=== PATIENT | male | born 1960 | race Caucasian/White ===

== ENCOUNTER 2016-09-14 13:53 | Emergency (ER) | payer OTHER ==
[~2016-09-14] VITALS: Ht 175.3 cm; Wt 86.0 kg
[2016-09-14 13:56] VITALS: BP 105/60; PULSE 45; RESP 22; TEMP 98.5; O2SAT 97
[2016-09-14 14:26] VITALS: BP 119/73; PULSE 56; RESP 16; O2SAT 98
[2016-09-14] MEDS ORDERED: SODIUM CHLOR 0.9% 1000 ML INJ 1,000 ML IV SCH (14:26)
[2016-09-14] MEDS ORDERED: ONDANSETRON HCL 4 MG/2 ML VIAL IVP ONE (14:30)
[2016-09-14] MEDS ORDERED: MORPHINE SULFATE 4 MG/ML INJ IV PUSH ONE (14:30)
[2016-09-14] MEDS ORDERED: SODIUM CHLORIDE 0.9% FLUSH 10 ML FLUSH IV FLUSH PRN (14:30)
--- NOTE | 2016-09-14 14:35 | PD ---
HPI Chief Complaint: Abdominal Pain Time Seen by Provider: 14:31 Travel History International Travel<30 days: No Contact w/Intl Traveler<30days: No Traveled to known affect area: No History of Present Illness HPI Patient comes in complaining of lower abdominal pain that began shortly prior to arrival. Patient states pain began shortly after drinking some milk. Patient has anything today. Patient states he has associated nausea and vomiting was nonbloody and nonbilious. Patient was present stabbing cramping pain more in the left lower quadrant that radiates across the right lower quadrant. Patient denies any history of abdominal surgery because reported umbilical hernia. Patient reports he did some heavy lifting yesterday but did not have the pain at that time. Denies any back pain, chest pain, shortness of breath, fevers, diarrhea, or headaches. FORMERLY [facility] Past Medical History Medical History: Denies Significant Hx Tetanus Vaccination: > 5 Years Influenza Vaccination: No Social History Alcohol Use: No Tobacco Use: Yes (1 cig a day, yesterday was last time) Substance Use: No Allergies-Medications (Allergen,Severity, Reaction): Coded Allergies: No Known Allergies (Unverified , 09/14/16) Review of Systems Except as stated in HPI: all other systems reviewed are Neg Physical Exam Narrative GENERAL: Well-developed, overly nourished, in no acute distress, and non-ill appearing. SKIN: Focused skin assessment warm and dry. HEAD: Atraumatic. Normocephalic. EYES: Pupils equal and round. EOMI. No scleral icterus. No injection or drainage. ENT: No nasal bleeding or discharge. Mucous membranes pink and moist. NECK: Trachea midline. No JVD. Supple. No nuclear rigidity. CARDIOVASCULAR: Regular rate and rhythm. No murmur appreciated. RESPIRATORY: No accessory muscle use. No respiratory distress. Clear to auscultation. Breath sounds equal bilaterally. GASTROINTESTINAL: Abdomen soft, nondistended. Hepatic and splenic margins not palpable. Hypoactive bowel sounds 4. No pulsatile mass. Patient reports that throughout the abdomen, but greater across the lower abdomen. Umbilical hernia is also noted that patient reports tenderness to palpation. MUSCULOSKELETAL: No obvious deformities. No clubbing. No cyanosis. No edema. Full range of motion. NEUROLOGICAL: Awake and alert. No obvious cranial nerve deficits. Motor grossly within normal limits. Normal speech. PSYCHIATRIC: Appropriate mood and affect; insight and judgment normal. Data Data Last Documented VS Vital Signs Date Time Temp Pulse Resp B/P Pulse Ox O2 Delivery O2 Flow Rate FiO2 09/14/16 17:02 62 16 143/89 98 Room Air 09/14/16 13:56 98.5 Orders Complete Blood Count With Diff (09/14/16 14:26) Comprehensive Metabolic Panel (09/14/16 14:26) Lipase (09/14/16 14:26) Lactic Acid (09/14/16 14:26) Prothrombin Time / Inr (Pt) (09/14/16 14:26) Act Partial Throm Time (Ptt) (09/14/16 14:26) Ct Abd/Pel W/O Iv Contrast (09/14/16 14:26) Iv Access Insert/Monitor (09/14/16 14:) Ecg Monitoring (09/14/16 14:26) Oximetry (09/14/16 14:26) Morphine Inj (Morphine Inj) (09/14/16 14:30) Ondansetron Inj (Zofran Inj) (09/14/16 14:30) Sodium Chlor 0.9% 1000 Ml Inj (Ns 1000 M (09/14/16 14:26) Sodium Chloride 0.9% Flush (Ns Flush) (09/14/16 14:30) Electrocardiogram (09/14/16 14:26) Urinalysis - C+S If Indicated (09/14/16 15:09) Labs Laboratory Tests Test 09/14/16 09/14/16 09/14/16 14:20 14:40 16:30 White Blood Count 12.2 TH/MM3 Red Blood Count 4.97 MIL/MM3 Hemoglobin 13.8 GM/DL Hematocrit 41.5 % Mean Corpuscular Volume 83.4 FL Mean Corpuscular Hemoglobin 27.7 PG Mean Corpuscular Hemoglobin 33.2 % Concent Red Cell Distribution Width 13.5 % Platelet Count 187 TH/MM3 Mean Platelet Volume 9.1 FL Neutrophils (%) (Auto) 78.2 % Lymphocytes (%) (Auto) 14.9 % Monocytes (%) (Auto) 4.9 % Eosinophils (%) (Auto) 1.5 % Basophils (%) (Auto) 0.5 % Neutrophils # (Auto) 9.5 TH/MM3 Lymphocytes # (Auto) 1.8 TH/MM3 Monocytes # (Auto) 0.6 TH/MM3 Eosinophils # (Auto) 0.2 TH/MM3 Basophils # (Auto) 0.1 TH/MM3 CBC Comment DIFF FINAL Differential Comment Prothrombin Time 11.4 SEC Prothromb Time International 1.0 RATIO Ratio Activated Partial 22.7 SEC Thromboplast Time Sodium Level 143 MEQ/L Potassium Level 3.8 MEQ/L Chloride Level 104 MEQ/L Carbon Dioxide Level 34.1 MEQ/L Anion Gap 5 MEQ/L Blood Urea Nitrogen 22 MG/DL Creatinine 1.27 MG/DL Estimat Glomerular Filtration 59 ML/MIN Rate Random Glucose 144 MG/DL Calcium Level 9.2 MG/DL Total Bilirubin 0.6 MG/DL Aspartate Amino Transf 21 U/L (AST/SGOT) Alanine Aminotransferase 38 U/L (ALT/SGPT) Alkaline Phosphatase 60 U/L Total Protein 7.9 GM/DL Albumin 4.0 GM/DL Lipase 200 U/L Lactic Acid Level 1.8 mmol/L Urine Color YELLOW Urine Turbidity CLEAR Urine pH 7.0 Urine Specific [place] 1.019 Urine Protein NEG mg/dL Urine Glucose (UA) NEG mg/dL Urine Ketones NEG mg/dL Urine Occult Blood NEG Urine Nitrite NEG Urine Bilirubin NEG Urine Urobilinogen LESS THAN 2.0 MG/DL Urine Leukocyte Esterase NEG Urine RBC LESS THAN 1 /hpf Urine WBC 1 /hpf Urine Squamous Epithelial <1 /hpf Cells Urine Bacteria RARE /hpf Urine Mucus FEW /lpf Microscopic Urinalysis Comment CULT NOT INDICATED MDM Medical Decision Making Medical Screen Exam Complete: Yes Emergency Medical Condition: Yes Interpretation(s) CT of the abdomen read by radiologist shows: 1. Umbilical hernia containing a small segment of small bowel. Mild dilatation of small bowel loops proximal to the hernia. 2. Diverticulosis without diverticulitis. Differential Diagnosis Ileus, obstruction, appendicitis, diverticulitis, incarcerated hernia, ischemic bowel, renal calculi, UTI, other Narrative Course Patient seen and examined. Initial laboratory and radiological studies were obtained and reviewed. Discussed patient with Dr. Diaz, who saw and evaluated the patient and easily reduced patient's umbilical hernia. Patient in no obvious distress upon re-evaluation. All pertinent laboratory/ Radiology result(s) discussed with patient/family. Dr. Diaz discussed warning signs to return to the emergency department as well as gave patient's instructions on how to reduce his umbilical hernia home with symptoms recur strict instructions to return to the emergency department if unable to reduce it or alleviate pain. Any questions/concerns in reference to patient diagnosis/ condition discussed and clarified prior to patient's discharge. Reinforced sheer importance of close follow up with patient's primary physician or primary care clinic and/or general surgeon. Instructed patient to return to ED immediately, if symptoms return/worsen. Pt showed understanding of above instructions. Patient was discharged by Dr. Diaz, please see his documentation for final diagnosis. Pt ambulated without difficulty out of ED at discharge. Physician Communication Physician Communication [phone] discussed patient with Gen Nancy. surgeon on-call, who is in agreement with plan of feeding patient and monitoring in the ER for little while and if patient remained stable follow-up as an outpatient. And to give the patient instructions on how to reduce his hernia as an outpatient and warning signs to return to the emergency department. Condition: David Casey September 14, 2016 14:35
[2016-09-14 14:46] LABS: AUTOMATED NEUTROPHIL # 9.5 TH/MM3 (1.8-7.7); BASOPHIL # 0.1 TH/MM3 (0-0.2); BASOPHIL % 0.5 % (0.0-2.0); EOSINOPHIL # 0.2 TH/MM3 (0-0.4); EOSINOPHIL % 1.5 % (0.0-4.0); HEMATOCRIT 41.5 % (39.0-51.0); HEMO FLAGS DIFF FINAL; LYMPH % 14.9 % (9.0-44.0); LYMPHOCYTE # 1.8 TH/MM3 (1.0-4.8); MEAN CELL VOLUME 83.4 FL (80.0-100.0); MEAN CORPUSCULAR HEMOGLOBIN 27.7 PG (27.0-34.0); MEAN CORPUSCULAR HGB CONC 33.2 % (32.0-36.0); MONO % 4.9 % (0.0-8.0); NEUT % 78.2 % (16.0-70.0); PLATELET COUNT 187 TH/MM3 (150-450); RED BLOOD COUNT 4.97 MIL/MM3 (4.50-5.90); RED CELL DISTRIBUTION WIDTH 13.5 % (11.6-17.2); WHITE BLOOD COUNT 12.2 TH/MM3 (4.0-11.0)
[2016-09-14 14:53] LABS: APTT (PATIENT) 22.7 SEC (24.3-30.1); PROTHROMBIN TIME - PATIENT 11.4 SEC (9.8-11.6)
[2016-09-14 15:04] LABS: ANION GAP 5 MEQ/L (5-15); AST (GOT) 21 U/L (15-37); BICARBONATE 34.1 MEQ/L (21.0-32.0); BLOOD UREA NITROGEN 22 MG/DL (7-18); CHLORIDE 104 MEQ/L (98-107); GLOMERULAR FILTRATION RATE 59 ML/MIN (>89); POTASSIUM 3.8 MEQ/L (3.5-5.1); SODIUM (NA) 143 MEQ/L (136-145)
[2016-09-14 15:08] LABS: ALKALINE PHOSPHATASE 60 U/L (45-117); ALT (GPT) 38 U/L (12-78); TOTAL BILIRUBIN ADULT 0.6 MG/DL (0.2-1.0)
--- NOTE | 2016-09-14 15:53 | RADRPT ---
EXAM DATE/TIME: 09/14/2016 15:30 [place] COMPARISON: No previous studies available for comparison. INDICATIONS : Diffuse abdominal pain ORAL CONTRAST: No oral contrast ingested. RADIATION DOSE: 9.96 CTDIvol (mGy) MEDICAL HISTORY : None SURGICAL HISTORY : None. ENCOUNTER: Initial ACUITY: 1 day PAIN SCALE: 4/10 LOCATION: Left lower quadrant TECHNIQUE: Volumetric scanning of the abdomen and pelvis was performed. Using automated exposure control and ad justment of the mA and/or kV according to patient size, radiation dose was kept as low as reasonably achievable to obtain optimal diagnostic quality images. FINDINGS: LOWER LUNGS: Right basilar atelectasis. LIVER: Homogeneous density without lesion. There is no dilation of the biliary tree. No calcified gallston es. SPLEEN: Normal size without lesion. PANCREAS: Within normal limits. KIDNEYS: Normal in size and shape. There is no mass, stone, or hydronephrosis. ADRENAL GLANDS: Within normal limits. VASCULAR: There is no aortic aneurysm. BOWEL/MESENTERY: Diverticulosis of the descending and sigmoid colon. No definite diverticulitis. Mildly prominent smal l bowel loops seen proximal to the umbilical hernia. There is an umbilical hernia containing a small segment of small bowel. Stomach is dilated. There is no free intraperitoneal air or fluid. ABDOMINAL WALL: Within normal limits. RETROPERITONEUM: There is no lymphadenopathy. BLADDER: No wall thickening or mass. REPRODUCTIVE: Mildly prominent prostate. INGUINAL: There is no lymphadenopathy or hernia. MUSCULOSKELETAL: Degenerative changes lower lumbar spine and both hips. CONCLUSION: 1. Umbilical hernia containing a small segment of small bowel. Mild dilatation of small bowel loops p roximal to the hernia. 2. Diverticulosis without diverticulitis. Curt Kolb MD on September 14, 2016 at 15:42 Board Certified Radiologist. This report was verified electronically.
--- NOTE | 2016-09-14 16:19 | PD ---
Data Data Last Documented VS Vital Signs Date Time Temp Pulse Resp B/P Pulse Ox O2 Delivery O2 Flow Rate FiO2 09/14/16 17:02 62 16 143/89 98 Room Air 09/14/16 13:56 98.5 Orders Complete Blood Count With Diff (09/14/16 14:26) Comprehensive Metabolic Panel (09/14/16 14:26) Lipase (09/14/16 14:26) Lactic Acid (09/14/16 14:26) Prothrombin Time / Inr (Pt) (09/14/16 14:26) Act Partial Throm Time (Ptt) (09/14/16 14:26) Ct Abd/Pel W/O Iv Contrast (09/14/16 14:26) Iv Access Insert/Monitor (09/14/16 14:) Ecg Monitoring (09/14/16 14:) Oximetry (09/14/16 14:) Morphine Inj (Morphine Inj) (09/14/16 14:30) Ondansetron Inj (Zofran Inj) (09/14/16 14:30) Sodium Chlor 0.9% 1000 Ml Inj (Ns 1000 M (09/14/16 14:26) Sodium Chloride 0.9% Flush (Ns Flush) (09/14/16 14:30) Electrocardiogram (09/14/16 14:26) Urinalysis - C+S If Indicated (09/14/16 15:09) Labs Laboratory Tests Test 09/14/16 09/14/16 09/14/16 14:20 14:40 16:30 White Blood Count 12.2 TH/MM3 Red Blood Count 4.97 MIL/MM3 Hemoglobin 13.8 GM/DL Hematocrit 41.5 % Mean Corpuscular Volume 83.4 FL Mean Corpuscular Hemoglobin 27.7 PG Mean Corpuscular Hemoglobin 33.2 % Concent Red Cell Distribution Width 13.5 % Platelet Count 187 TH/MM3 Mean Platelet Volume 9.1 FL Neutrophils (%) (Auto) 78.2 % Lymphocytes (%) (Auto) 14.9 % Monocytes (%) (Auto) 4.9 % Eosinophils (%) (Auto) 1.5 % Basophils (%) (Auto) 0.5 % Neutrophils # (Auto) 9.5 TH/MM3 Lymphocytes # (Auto) 1.8 TH/MM3 Monocytes # (Auto) 0.6 TH/MM3 Eosinophils # (Auto) 0.2 TH/MM3 Basophils # (Auto) 0.1 TH/MM3 CBC Comment DIFF FINAL Differential Comment Prothrombin Time 11.4 SEC Prothromb Time International 1.0 RATIO Ratio Activated Partial 22.7 SEC Thromboplast Time Sodium Level 143 MEQ/L Potassium Level 3.8 MEQ/L Chloride Level 104 MEQ/L Carbon Dioxide Level 34.1 MEQ/L Anion Gap 5 MEQ/L Blood Urea Nitrogen 22 MG/DL Creatinine 1.27 MG/DL Estimat Glomerular Filtration 59 ML/MIN Rate Random Glucose 144 MG/DL Calcium Level 9.2 MG/DL Total Bilirubin 0.6 MG/DL Aspartate Amino Transf 21 U/L (AST/SGOT) Alanine Aminotransferase 38 U/L (ALT/SGPT) Alkaline Phosphatase 60 U/L Total Protein 7.9 GM/DL Albumin 4.0 GM/DL Lipase 200 U/L Lactic Acid Level 1.8 mmol/L Urine Color YELLOW Urine Turbidity CLEAR Urine pH 7.0 Urine Specific [place] 1.019 Urine Protein NEG mg/dL Urine Glucose (UA) NEG mg/dL Urine Ketones NEG mg/dL Urine Occult Blood NEG Urine Nitrite NEG Urine Bilirubin NEG Urine Urobilinogen LESS THAN 2.0 MG/DL Urine Leukocyte Esterase NEG Urine RBC LESS THAN 1 /hpf Urine WBC 1 /hpf Urine Squamous Epithelial <1 /hpf Cells Urine Bacteria RARE /hpf Urine Mucus FEW /lpf Microscopic Urinalysis Comment CULT NOT INDICATED MDM Medical Record Reviewed: Yes Supervised Visit with SHARON: Yes Narrative Course I, Dr. Diaz, have reviewed the advance practice practitioner's documentation and am in agreement, met with the patient face to face, made the diagnosis, and the medical decision making was done by me. *My assessment and Findings: CBC & BMP Diagram 09/14/16 14:20 Lactic 1.8 LFTs normal Lipase normal Last 24 hours Impressions Abdomen/Pelvis CT 09/14/16 1426 Signed Impressions: Service Date/Time: Wednesday, September 14, 2016 15:30 - CONCLUSION: 1. Umbilical hernia containing a small segment of small bowel. Mild dilatation of small bowel loops proximal to the hernia. 2. Diverticulosis without diverticulitis. Curt Kolb MD Hernia reduced at bedside without difficulty. Pt reports resolution. Pt tolerated PO intake without difficulty. He's ready for discharge at 445pm. F/u w Dr Henry. Pt has bee constipated lately and we discussed diet/lifestyle modification. Diagnosis Primary Impression: Reducible bulge of abdominal wall Additional Impression: Constipation Qualified Code: K59.00 - Constipation, unspecified constipation type Referrals: Durga Henry MD 2 days Additional Instruction: You have a choice when it comes to health care, and we are glad that you chose [email or web address]. Hopefully, we have met your expectations on today's visit. You are welcome to return to [email or web address] at any time, as we are committed to meeting the health care needs of our community. Med/Other Pt SpecificInfo: No Change to Meds Disposition: 01 DISCHARGE HOME Condition: Stable Jesus Diaz MD September 14, 2016 16:19
[2016-09-14 17:02] VITALS: BP 143/89; PULSE 62; RESP 16; O2SAT 98
[2016-09-14 17:31] LABS: BACTERIA, URINE RARE /hpf; BLOOD, URINE NEG (NEG); GLUCOSE,URINE NEG (NEG); KETONE, URINE NEG (NEG); MUCUS URINE FEW /lpf (OCC); NITRITE,URINE NEG (NEG); SQUAMOUS EPITHELIAL CELL URINE <1 /hpf (0-5); URINE COLOR YELLOW (YELLW/STRAW)
[2016-09-14 17:33] LABS: COMMENT (UR) CULT NOT INDICATED; CULTURE IF INDICATED CULT NOT INDICATED
--- NOTE | 2016-09-15 05:55 | EKG ---
Date Performed: 09/14/2016 Time Performed: 15:42:51 PTAGE: 56 years EKG: SINUS BRADYCARDIA BORDERLINE LEFT AXIS DEVIATION INCOMPLETE RIGHT BUNDLE BRANCH BLOCK BORDE RLINE ECG NO PREVIOUS TRACING DOCTOR: Akash Reddy Interpretating Date/Time 09/15/2016 05:54:37
== END 2016-09-14 17:30 | disposition home or self-care (01) ==
LOC: NEPE 13:53
DX: K42.9 Umbilical hernia without obstruction or gangrene (principal); K59.00 Constipation, unspecified; R00.1 Bradycardia, unspecified; K57.30 Diverticulosis of large intestine without perforation or abscess without bleeding
CPT/HCPCS: 74176; 80053; 81001; 83605; 83690; 85025; 85610; 85730; 93005; 96361; 96374; 96375; 99284; J2270; J2405; J7030